=== PATIENT | female | born 1950 | race Caucasian/White ===

== ENCOUNTER 2017-01-04 19:49 | Emergency (ER) | payer MEDICARE, OTHER ==
[~2017-01-04 19:49] MED LIST: ADVIL200 MG PO; ALBUTEROL17 GM; ALDACTONE25 M1 PO; ALDACTONE25 MG PO; AMIODARONE HCL100 M1 PO; AMIODARONE HCL200 M1 PO; AMIODARONE HCL200 MG; AMOXICILLIN500 M PO; AMOXICILLIN875 M1 PO; AMOXICILLIN875 MG PO; ASPIR 8181 MG; ASPIR-LOW81 M1 PO; ASPIR-LOW81 MG PO; ASPIRIN81 MG; AUGMENTIN 875-1 EAC2 PO; AUGMENTIN PO; AUGMENTIN875 MG GT; BACTRIM DS1 TA1 PO; BENAZEPRIL HCL5 M2 PO; BENAZEPRIL HCL5 MG; BENAZEPRIL HCL5 MG PO; CALCIUM 600 +1 EA14 PO; CALCIUM600 MG; CALCIUM600 MG PO; COLACE100 M1 PO; COLACE100 MG PO; COREG12.5 M1 PO; COREG12.5 MG; COREG25 M1 PO; COREG25 MG; COREG25 MG PO; COREG6.25 MG; COUMADIN10 M1 PO; COUMADIN2.5 MG; COUMADIN5 MG; COUMADIN6 M1 PO; COUMADIN6 MG; COUMADIN7.5 MG; CRESTOR PO; CRESTOR10 MG PO; CRESTOR10 MG/TAB PO; EPA-DHA SOFTGEL1 CAP PO; FERROUS SULFAT160 MG PO; FERROUS SULFATE PO; FISH OIL 1,0001 CA1 PO; FISH OIL SOFTGE1 CAP; FISH OIL1 CAP; H PO; IBUPROFEN600 MG; IBUPROFEN800 MG; IMDUR30 MG PO; IMDUR60 MG PO; IRON325 M3 PO; ISOPTO TEARS15 ML OP; ISOSORBIDE MONO60 M3 PO; K-DUR20 MEQ; K-TAB10 MEQ; LASIX20 MG; LASIX20 MG PO; LASIX40 M1 PO; LASIX40 MG; LASIX40 MG PO; LEVOTHYROXINE25 MCG PO; LEVOTHYROXINE50 MC3 PO; LIPITOR40 M1 PO; LORCET HD CAPSU1 CAP; LORTAB 5/500 TA1 TAB; MULTIVITAMIN1 TAB; MULTIVITAMINS1 EAC6 PO; NITROQUICK0.4 MG; NITROQUICK0.4 MG SL; NORCO 5/325 TAB1 TAB; NORCO 5/325 TAB1 TAB PO; NORCO 5/3251 TAB PO; PLAVIX75 M1; PLAVIX75 M1 PO; PLAVIX75 MG PO; PRAVACHOL40 MG PO; PREDNISONE20 M1 PO; PRILOSEC40 MG; PROTONIX40 MG PO; PYRIDIUM200 MG PO; SENOKOT8.6 MG; SKELAXIN800 MG PO; SLO IRON PO; SLOW FE142 MG PO; SLOW RELEASE IRON PO; SYNTHROID25 MCG PO; TYLENOL325 MG; TYLENOL325 MG PO; TYLENOL500 MG PO; TYLENOL650 MG PO; WARFARIN SODIUM5 MG; WARFARIN SODIUM6 M1 PO; ZOCOR20 MG; [UNRECOGNIZED DRUG - OTHER]
[2017-01-04] MEDS ORDERED: PREDNISONE10 M1 PO (20:26)
[2017-01-04] MEDS ORDERED: ALBUTEROL2.5 MG/3 M INH (20:31)
[2017-01-04] MEDS ORDERED: VENTOLIN HFA18 G2 PO (20:51)
[2017-01-04] MEDS ORDERED: AMIODARONE HCL100 M1 PO (20:52)
[2017-01-04] MEDS ORDERED: ASPIRIN EC81 MG PO (20:52)
[2017-01-04] MEDS ORDERED: COREG25 M1 PO (20:52)
[2017-01-04] MEDS ORDERED: COLACE100 M1 PO (20:53)
[2017-01-04] MEDS ORDERED: LASIX40 M1 PO (20:54)
[2017-01-04] MEDS ORDERED: MUCINEX600 M1 PO (20:54)
[2017-01-04] MEDS ORDERED: SLOW RELEASE I143 MG PO (20:54)
[2017-01-04] MEDS ORDERED: ISOSORBIDE MONO60 M3 PO (20:55)
[2017-01-04] MEDS ORDERED: LEVOTHYROXINE50 MC3 PO (20:56)
[2017-01-04] MEDS ORDERED: UNICOMPLEX-M1 EACH PO (20:58)
[2017-01-04] MEDS ORDERED: NITROGLYCERIN0.4 M2 SL (20:59)
[2017-01-04] MEDS ORDERED: ALDACTONE25 M1 PO (21:02)
[2017-01-04] MEDS ORDERED: CEFDINIR300 M1 PO (21:03)
[2017-03-03] MEDS ORDERED: CRESTOR10 M1 PO (03:09)
[2017-03-03] MEDS ORDERED: VENTOLIN HFA18 G2 PO (03:14)
[2017-03-03] MEDS ORDERED: SYMBICORT 80-41 PUFF INH (03:14)
[2017-03-03] MEDS ORDERED: BENAZEPRIL HCL5 M2 PO (03:15)
[2017-03-03] MEDS ORDERED: PREDNISONE20 M1 PO (05:10)
[2017-03-03] MEDS ORDERED: LASIX40 M1 PO (05:10)
== END 2017-01-04 21:40 ==
LOC: EDMED 19:49
DX: R06.02 Shortness of breath (principal); R06.2 Wheezing; I50.9 Heart failure, unspecified; Z79.82 Long term (current) use of aspirin; Z79.899 Other long term (current) drug therapy